=== PATIENT | female | born 1960 | race Caucasian/White ===

== ENCOUNTER → 2021-02-08 | Day surgery (SDC) | payer BC ==
[~2021-02-08] MED LIST: BUPIVACAINE HCL 0.5% INJ 30 ML VIAL INJ ONE; FENTANYL CITRATE/PF 100MCG/2 ML INJ ONE; LIPITOR10 MG PO; Morphine 2mg Syringe 2 MG/ML SYR ONE; PROZAC40 MG PO; SODIUM CHLORIDE 0.9% 50ML 100 ML ONE; TRAZODONE HCL100 MG PO
[2021-02-08 15:15] VITALS: BP 131/61
== END | disposition home or self-care (01) ==
LOC: OR 10:21
PROVIDERS: ATTEND Orthopaedic Surgery
DX: L72.0 Epidermal cyst (principal); F41.9 Anxiety disorder, unspecified; K21.9 Gastro-esophageal reflux disease without esophagitis; Z91.041 Radiographic dye allergy status; Z01.810 Encounter for preprocedural cardiovascular examination; Z01.812 Encounter for preprocedural laboratory examination; Z20.822 Contact with and (suspected) exposure to COVID-19; Z79.82 Long term (current) use of aspirin
CPT/HCPCS: 11402; 12031; 88304; 93005; J0690; J2270; J3010; U0002